=== PATIENT | female | born 1995 ===

== ENCOUNTER 2021-02-21 19:54 | Outpatient (CLI) | payer OTHER ==
[2021-02-21 20:25] VITALS: BP 118/62
[2021-02-21 20:43] LABS: Bilirubin,Urine NEG (Negative); Blood,Urine NEG (Negative); Color,Urine Yellow (Yellow); Mucus,Urine FEW /HPF; Protein,Urine <15 mg/dL mg/dL (Negative); Urobilinogen,Urine < 2.0 mg/dL (<2.0)
[2021-02-21 20:49] LABS: Amphetamine Screen,Urine Negative; Benzodiazepines Screen,Urine Negative; Cannabinoid Screen,Urine Negative; Cocaine Screen,Urine Negative; Methadone Screen,Urine Negative; Opiate Screen,Urine Negative
[2021-02-21] MEDS ORDERED: LACTATED RINGERS 1,000 ML IV ONE (22:28)
--- NOTE | 2021-02-22 00:50 | Ultrasound Report ---
ULTRASOUND BIOPHYSICAL PROFILE INDICATION: no care. COMPARISON: None available. FINDINGS: breathing movement = 2 Gross body movement = 2 tone = 2 Qualitative amniotic fluid volume = 2 Total biophysical score = 01/23 Amniotic fluid index is 13.0 cm. Presentation is Cephalic. heart rate is 135 beats per minute. IMPRESSION: biophysical profile = 01/23 Signer Name: Dread Vidal MD Signed: 02/22/2021 12:46 AM Workstation Name: [id number]
--- NOTE | 2021-02-22 00:53 | Ultrasound Report ---
OBSTETRIC ULTRASOUND INDICATION: no care COMPARISON: No prior relevant imaging studies are available for comparison. TECHNIQUE: Transabdominal imaging was performed. FINDINGS: Single viable intrauterine is identified. lie: vertex. Heart rate: 135 bpm. measurements are as follows: Biparietal diameter 8.7 cm, 35 weeks 0 days Head circumference 31.1 cm, 34 weeks 5 days Abdominal circumference 28.9 cm, 33 weeks 0 days Femur length 6.2 cm, 31 weeks 6 days Estimated heart rate at this time is 2096 g. Amniotic fluid index is 13 cm, within normal limits. There is a grade 2 posterior/right lateral place nta which is free of the os. Cervical length is 4.1 cm. CONCLUSION: Single viable intrauterine with sonographic gestational age of 33 weeks 5 days. Amniotic fl uid index is within normal limits. Signer Name: Dread Vidal MD Signed: 02/22/2021 12:48 AM Workstation Name: [id number]
[2021-02-22] MEDS ORDERED: BUTALB/ACETAMINOPHEN/CAFFEINE TAB PO ONE (01:12)
== END 2021-02-22 00:58 | disposition home or self-care (01) ==
LOC: TRG 19:54 → APU 19:57 → TRG 02-22 00:58
PROVIDERS: ATTEND Obstetrics & Gynecology
DX: O26.899 Other specified pregnancy related conditions, unspecified trimester (principal); R10.9 Unspecified abdominal pain; R51.9 Headache, unspecified; Z3A.00 Weeks of gestation of pregnancy not specified
CPT/HCPCS: 59025; 76805; 76816; 76819; 80307; 81001

== ENCOUNTER 2021-04-13 19:45 | Inpatient (IN) | payer SELFPAY ==
[2021-04-13] MEDS ORDERED: ePHEDrine SULFATE 50 MG/1 ML INJ IV PRN (20:21)
[2021-04-13] MEDS ORDERED: OXYTOCIN 10 UNIT/1 ML INJ IM PRN (20:21)
[2021-04-13] MEDS ORDERED: METHYLERGONOVINE MALEATE 0.2 MG/ML VIAL IM PRN (20:21)
[2021-04-13] MEDS ORDERED: CARBOPROST TROMETHAMINE 250 MCG/1 ML INJ IM PRN (20:21)
[2021-04-13] MEDS ORDERED: LOPERAMIDE 2 MG CAP PO PRN (20:21)
[2021-04-13] MEDS ORDERED: TERBUTALINE 1 MG/1 ML INJ SUB-Q PRN (20:21)
[2021-04-13] MEDS ORDERED: LIDOCAINE (2%) 20 MG/1 ML VIAL 20 ML MDV INFILTRATI ONE (20:21)
[2021-04-13] MEDS ORDERED: miSOPROStol 200 MCG TAB PR PRN (20:21)
[2021-04-13] MEDS ORDERED: MINERAL OIL 30 ML ORAL LIQD PO PRN (20:21)
[2021-04-13] MEDS ORDERED: NalbUPHINE 10 MG/1 ML INJ IV PRN (20:26)
[2021-04-13] MEDS ORDERED: ACETAMINOPHEN 325 MG TAB PO PRN (20:26)
[2021-04-13] MEDS ORDERED: ONDANSETRON 4 MG/2 ML INJ IV PRN ×2 (20:26→20:56)
[2021-04-13] MEDS ORDERED: fentaNYL 100 MCG/2 ML INJ IV PRN (20:26)
[2021-04-13] MEDS ORDERED: LACTATED RINGERS 1,000 ML IV SCH (20:30)
--- NOTE | 2021-04-13 20:40 | History and Physical Report ---
History of Present Illness Date of examination: 04/13/21 Date of admission: 04/13/21 19:45 Chief complaint: feeling painful ctx and pushing History of present illness: at 40.6wks by EDC 04/07/21 per triage scan here at [facility]. pt had no care this . Pt admits to movement, screaming and pushing with painful contractions and speaks only kiswahili with family member to bedside that speaks both kiswahili and Citizen [place]. Denies leakage of fluid, headache or vag bleeding. Past History Past Medical History: no pertinent history Past Surgical History: no surgical history Social history: no significant social history - Obstetrical History Expected Date of Delivery: 04/07/21 Actual Gestation: 40 Week(s) 6 Day(s) : 4 Hx # Term Pregnancies: 3 (all babies "got stuck" history obtained post delivery) Number of Living Children: 3 Medications and Allergies Allergies Allergy/AdvReac Type Severity Reaction Status Date / Time No Known Allergies Allergy Unverified 02/21/21 20:14 Home Medications Medication Instructions Recorded Confirmed Last Taken Type No Known Home Medications [No 02/22/21 02/22/21 Unknown History Reported Home Medications] Review of Systems All systems: negative (painful contractions and pushing) - Physical Exam Breasts: Positive: deferred Cardiovascular: Regular rate Lungs: Positive: Normal air movement Abdomen: Positive: soft Vagina: Positive: normal moisture Uterus: Positive: enlarged (non-tender, gravid) Adnexa: both: normal Extremities: Positive: normal - Obstetrical FHR: other (none) Uterine Contraction Monitor Mode: Palpation Cervical Dilatation: 10 Cervical Effacement Percentage: 100 station: 0 Uterine Contraction Pattern: Regular Results All other labs normal. Assessment and Plan Term , post dates and pushing and thrashing in bed. 1. Admit to labor and delivery 2. Verbal consents obtained and AROM done with clear liquid and pt . See delivery note 3. Walk in labs ordered 4. Baby delivered using family member as precision grinder external and pt uncontrolled. All questions for history obtained post delivery
--- NOTE | 2021-04-13 20:52 | Procedure Note ---
OB Delivery Note - Delivery Date of Delivery: 04/13/21 Surgeon: CINDY YOU Estimated blood loss: 200cc - Vaginal Delivery presentation: vertex Delivery position: OA Intrapartum events: no care, shoulder dystocia Delivery induction: AROM Delivery monitor: none Route of delivery: (with pt not pushing effectively) Delivery placenta: spontaneous Episiotomy: none Delivery laceration: 1st degree (repaired with figure of 8 single suture of 3-0 chromic) Delivery repair: chromic Anesthesia: none Delivery comments: Vaginal delivery with pt not pushing effectively and shoulder dystocia and pt running up the bed. Many other nurses present and pt not pushing inspite of instructions from bulgarian speaking staff members. pt delivered in [place], suprapubic pressure and manual delivery of left posterior arm and counter clockwise rotation to deliver baby. NICU called to evaluate baby. Umbilical cord arterial and venous gas done and cord blood sent. Pt given IM pitocin 10mg since unable to get IV access. Spontaneous delivery of calcified intact placenta with 3vessel cord. Pt sustained 1st degree perineal laceration. Bimanual with fundus firm. Will send all walk in labs now. Mother and baby stable. - Infant A at 1 minute: 4 at 5 minutes: 9 Gender: Male (wt 3910g; clear amniotic fluid. Umbilical artery pH 7.29 and BE -6.1)
[2021-04-13] MEDS ORDERED: PROMETHAZINE 25 MG RECT SUPP PR PRN (20:56)
[2021-04-13] MEDS ORDERED: oxyCODONE /ACETAMINOPHEN 5-325MG TAB PO PRN (20:56)
[2021-04-13] MEDS ORDERED: MAGNESIUM HYDROXIDE (MOM) ORAL LIQD UDC PO PRN (20:56)
[2021-04-13] MEDS ORDERED: PROMETHAZINE 25 MG TAB PO PRN (20:56)
[2021-04-13] MEDS ORDERED: WITCH HAZEL/ GLYCERIN PAD TP PRN (20:56)
[2021-04-13] MEDS ORDERED: LANOLIN/ZINC/DIMETHICONE (LANSINOH) 7 GM TP PRN (20:56)
[2021-04-13] MEDS ORDERED: OXYTOCIN DRIP 30 UNITS/500 ML BAG IV SCH ×2 (21:00)
[2021-04-13] MEDS ORDERED: diphenhydrAMINE 25 MG CAP PO PRN (21:06)
[2021-04-13 21:40] LABS: Hematocrit 39.9 % (30.3-42.9); Hemoglobin 13.4 gm/dl (10.1-14.3); Mean Corpuscular HGB Conc 34 % (30-34); Mean Corpuscular Volume 91 fl (79-97); Platelet Count 293 K/mm3 (140-440); Red Blood Count 4.36 M/mm3 (3.65-5.03); Red Cell Distribution Width 13.1 % (13.2-15.2)
[2021-04-14] MEDS: IBUPROFEN 600 MG TAB PO SCH ×5 (00:30→21:00)
[2021-04-14 05:50] LABS: Amphetamine Screen,Urine Negative; Benzodiazepines Screen,Urine Negative; Cannabinoid Screen,Urine Negative; Cocaine Screen,Urine Negative; Methadone Screen,Urine Negative; Opiate Screen,Urine Negative
[2021-04-14 08:54] LABS: Hematocrit 35.6 % (30.3-42.9); Hemoglobin 11.8 gm/dl (10.1-14.3)
--- NOTE | 2021-04-14 17:07 | Progress Note ---
Assessment and Plan A: S/P p: Continue routine pp orders D/c home tomm if stable Subjective - Subjective Date of service: 04/14/21 Principal diagnosis: s/p Patient reports: appetite normal, voiding normally, pain well controlled, ambulating normally [place]: doing well, bottle feeding Objective - Vital Signs Latest vital signs: Vital Signs Temp Pulse Resp BP Pulse Ox Pulse Ox 04/14/21 15:42 98.2 F 74 20 116/62 98 04/14/21 11:42 98.1 F 70 20 109/63 98 04/14/21 08:00 97 04/14/21 07:27 97.5 F L 76 16 106/63 98 04/14/21 05:45 97.7 F 77 18 110/62 99 04/14/21 00:30 18 04/14/21 00:23 98.2 F 75 18 119/76 98 100 04/14/21 00:06 84 99 04/14/21 00:01 78 98 04/13/21 23:56 74 99 04/13/21 23:51 77 98 04/13/21 23:46 72 99 04/13/21 23:41 81 98 04/13/21 23:36 78 97 04/13/21 23:31 89 98 04/13/21 23:26 88 97 04/13/21 23:21 77 98 04/13/21 23:16 78 99 04/13/21 23:11 76 99 04/13/21 23:06 89 98 04/13/21 23:01 77 100 04/13/21 22:56 90 100 04/13/21 22:51 97 H 99 04/13/21 22:46 85 99 04/13/21 22:41 95 H 100 04/13/21 22:40 88 85 04/13/21 22:36 79 99 04/13/21 22:31 89 98 04/13/21 22:26 79 99 04/13/21 22:21 82 98 04/13/21 22:16 89 98 04/13/21 22:11 81 99 04/13/21 22:06 75 99 04/13/21 22:01 82 99 04/13/21 21:56 90 100 04/13/21 21:51 79 100 04/13/21 21:46 82 100 04/13/21 21:41 82 99 04/13/21 21:36 93 H 100 04/13/21 21:35 78 91 04/13/21 21:31 86 100 04/13/21 21:26 77 100 04/13/21 21:21 79 100 04/13/21 21:16 83 100 04/13/21 21:11 89 100 04/13/21 21:06 83 100 04/13/21 21:01 84 100 04/13/21 20:56 85 100 04/13/21 20:51 86 100 04/13/21 20:49 98.6 F 04/13/21 20:46 82 99 04/13/21 20:45 86 122/66 Intake and Output 04/14/21 04/14/21 04/14/21 06:59 14:59 22:59 Intake Total 600 440 Output Total 500 Balance 100 440 Intake: Oral 120 440 Intake, Free Water 480 Output: Urine 500 Void 500 Other: Total, Intake Amount 120 200 Total, Output Amount 200 # Voids Void 1 1 - Exam Breasts: Present: normal Abdomen: Present: normal appearance, soft, normal bowel sounds Vulva: both: normal Uterus: Present: normal, firm, fundal height below umbilicus Extremities: Present: normal Incision: Present: normal, intact - Labs Labs: Abnormal lab results 04/13/21 04/13/21 04/13/21 Range/Units 20:19 20:23 21:10 WBC 12.0 H (4.5-11.0) K/mm3 RDW 13.1 L (13.2-15.2) % ABG pH 7.173 L 7.298 L (7.320-7.450) POC ABG pCO2 54.0 H (32.0-48.0) mmHg POC ABG pO2 10.5 L 17.8 L (83-108) mmHg ABG Oxyhemoglobin 11.2 L 34.1 L (94-98) ABG Methemoglobin 1.6 H (0.0-1.5) ABG Sodium 135.7 L (136.0-145.0) mmol/L ABG Potassium 4.7 H 5.1 H (3.40-4.50) mmol/L ABG Glucose 57 L (65-95) mg/dL Carboxyhemoglobin 0.3 L 0.4 L (0.5-1.5) Arterial Blood Glucose 57 L (65-95) mg/dL
[2021-04-15] MEDS: IBUPROFEN 600 MG TAB PO SCH ×2 (03:00→09:00)
[2021-04-15] MEDS ORDERED: TETANUS,DIPH,PERTUSS(ACELL) VACCINE 0.5 ML SYRINGE IM ONE (06:00)
--- NOTE | 2021-04-15 07:57 | Discharge Summary ---
Providers - Providers Date of Admission: 04/13/21 19:45 Date of discharge: 04/15/21 Attending physician: CINDY YOU 04/14/21 02:41 Consult to Case Management [CONS] Routine Services Needed at Discharge: Radioisotope Technician Notified:: no Additional Physician Instructions: no pnc Primary care physician: NISHA JEFFRIES Hospitalization Reason for admission: active labor, IUP at term Delivery: Episiotomy: none Laceration: 1st degree Incision: normal, intact Other procedures: none complications: none Discharge diagnosis: IUP at term delivered baby: male Hospital course: Pt was admitted in labor with no pnc and had a w/o pp complications. See H&P, delivery summary, and pp notes. Condition at discharge: Stable Disposition: 01 HOME / SELF CARE / HOMELESS Plan - Discharge Medications Prescriptions: Ibuprofen [Motrin 600 MG tab] 600 mg PO Q6H PRN #30 tablet PRN Reason: Menstrual Cramps - Provider Discharge Summary Activity: routine, no sex for 6 weeks, no heavy lifting 4 weeks, no strenuous exercise Diet: routine Instructions: routine Additional instructions: [] Smoking cessation referral if applicable(refer to patient education folder for contact #) [] Refer to [facility]'s [facility] Booklet Call your doctor immediately for: * Fever > 100.5 * Heavy vaginal bleeding ( >1 pad per hour) * Severe persistent headache * Shortness of breath * Reddened, hot, painful area to leg or breast * Drainage or odor from incision. * Keep incision clean and dry at all times and follow doctor's instructions regarding bathing/showering - Follow up plan Follow up: NISHA JEFFRIES MD [Primary Care Provider] - 6 Weeks CINDY YOU MD [Staff Physician] - 6 Weeks
[2021-04-15 11:14] VITALS: BP 117/70
[2021-04-15] MEDS ORDERED: FLU VACC QUAD 2021-22(6MOS UP)/PF 60 MCG/0.5 ML SYRINGE IM ONE (12:00)
== END 2021-04-15 11:00 | disposition home or self-care (01) | DRG 807 ==
LOC: LD 19:45 → OB 04-14 00:45
PROVIDERS: ADMIT Obstetrics & Gynecology; ATTEND Obstetrics & Gynecology
PROC: 10E0XZZ Delivery of Products of Conception, External Approach (ICD-10-PCS; principal; 2021-04-13)
PROC: 10907ZC Drainage of Amniotic Fluid, Therapeutic from Products of Conception, Via Natural or Artificial Opening (ICD-10-PCS; 2021-04-13)
PROC: 0HQ9XZZ Repair Perineum Skin, External Approach (ICD-10-PCS; 2021-04-13)
PROC: 3E0R3BZ Introduction of Anesthetic Agent into Spinal Canal, Percutaneous Approach (ICD-10-PCS; 2021-04-13)
PROC: 00HU33Z Insertion of Infusion Device into Spinal Canal, Percutaneous Approach (ICD-10-PCS; 2021-04-13)
PROC: 3E0234Z Introduction of Serum, Toxoid and Vaccine into Muscle, Percutaneous Approach (ICD-10-PCS; 2021-04-15)
DX: O70.0 First degree perineal laceration during delivery (principal); Z37.0 Single live birth; Z3A.40 40 weeks gestation of pregnancy; Z23 Encounter for immunization; Z20.822 Contact with and (suspected) exposure to COVID-19
CPT/HCPCS: 36415; 80307; 82805; 85014; 85018; 85027; 86592; 86706; 86762; 86850; 86900; 86901; 87806; 90471; 90686; 90715; G0378; U0003